=== PATIENT | female | born 1950 | race Caucasian/White ===

== ENCOUNTER 2017-02-26 13:08 | Inpatient (IN) ==
[2017-02-26] MEDS ORDERED: KETOROLAC 30 MG/1 ML VIAL IM STA (14:36)
[2017-02-26] MEDS ORDERED: ALUM/MAG/SIMETH/LIDO VISC 1:1 30 ML BOTTLE PO STA (14:39)
[2017-02-26] MEDS ORDERED: KETOROLAC 30 MG/1 ML VIAL ONE (14:46)
[2017-02-26] MEDS ORDERED: ALUM/MAG/SIMETH/LIDO VISC 1:1 30 ML BOTTLE PO ONE (14:47)
--- NOTE | 2017-02-26 14:48 | Emergency Department Note ---
Katiuska Kauffman Brittany, am scribing for, and in the presence of, Oswaldo Cochran MD 14: 37. Dimas Kauffman Robert, MD, personally performed the services described in this documentation, ascribed by Lacy Harp in my presence, and it is both accurate and complete 440 . Arrival - Arrival Chief Complaint: Abdominal / Flank Pain Stated Complaint: upper abd pain ED Nursing Triage Note: Pt c/o midline upper abd/epigastric pain with nausea and vomiting off and on since Friday. Mode of Arrival: Ambulatory Limitations: No Limitations Source: Patient, Family Time Seen by Provider: 02/26/17 14:20 - History of Present Illness HPI Narrative: This is a 66 y/o white female, who presents to the ED with c/o abd pain which started 3 days ago. Pt describes the pain as a burning type of pain. She reports nausea and vomiting which started 3 days ago as well. She reports she takes Prilosec q.d. She states the abdominal pain moves into her mid back. Her family reports pt has been generalized weak which started today as well. Pt reports she had a small BM this morning. She reports chills on and off. Pt denies any VICTORIA, dizziness, dysuira, vision changes, hematemesis, or melena. She states she has a known Hx of GERD, but denies any Hx of stomach ulcers. Pt has no other complaints/pain in the ED at this time. Pt has a PMHx of GERD. Pt has had a tonsilectomy, hysterectomy, and bladder sling. Pt denies a family medical Hx. Pt denies a social Hx. Onset (ago): day(s) (Started 3 days ago) Consistency: constant Severity: moderate Quality: burning Allergies/Adverse Reactions: Allergies Allergy/AdvReac Type Severity Reaction Status Date / Time No Known Allergies Allergy Verified 02/26/17 13:10 Home Medications: Home Medications Medication Instructions Recorded Confirmed Type Omeprazole 20 mg PO DAILY 02/26/17 02/26/17 History Review of System - Review of System 12 point system: reviewed and no additional remarkable complaints except as stated - Review of System Constitutional: Present: chills, weakness (Generalized weakness) Eyes: Absent: vision change Gastrointestinal: Present: abdominal pain, vomiting. Absent: hematemesis, melena Genitourinary female: Absent: dysuria Musculoskeletal: Present: back pain (Mid back pain ) Neurological: Absent: headache, vertigo Medical,Surgical,& Family Hx - Medical History Gastrointestinal: History of: GERD - Surgical History HEENT Surgeries: Surgical HX of: Tonsilectomy & Adenoidectomy Reproductive Surgeries: Surgical HX of;: Gynecologic Surgery (Bladder Sling), Hysterectomy - Social History Smoking Status: Never smoker Functional capacity: independent ambulation Exam Physical Examination: GENERAL: Well developed, well nourished. No acute distress. HEENT: PERRL, EOMI. No scleral icterus or conjunctival injection. Pharynx showed no erythema or exudate. mucous membranes moist. NECK: Supple. No lymph adenopathy. full ROM HEART: Regular rate and rhythm without murmurs, Rubs, or gallops. CHEST: No tenderness. Left greater than right CVA tenderness LUNGS: clear to auscultation. No rales, rhonchi, wheezes ABDOMEN: Soft. tender over RUQ, epigastric region and supraumbilical region. Bowel sounds normoactive. There were no masses or organomegaly. No rebound, no guarding SKIN: No rash. No diaphoresis. normal color NEURO: Alert. Motor exam showed no weakness. Sensory exam was intact to fine touch EXT: No edema noted. Full range of motion. normal capillary refill Vital Signs: Vital Signs Temperature 97.7 F 02/27/17 10:53 Pulse Rate 54 L 02/27/17 10:53 Respiratory Rate 18 02/27/17 10:53 Blood Pressure 140/67 02/27/17 10:53 O2 Sat by Pulse Oximetry 98 02/27/17 10:53 Course Course Narrative: Differential diagnosis cholecystitis, cholelithiasis, pancreatitis, kidney stone , gastric ulcer, AAA. Vitals normal - Consultations Consultation #1: Spoke with Dr. Hill general surgery, was notified and will be following hospital course 3:45 PM Time: 15:58 Consultation #2: Patient with pancreatitis and cholelithiasis hospitalist notified will come down to see patient 3:50 PM Time: 15:58 Results - Labs CBC & BMP: 02/27/17 06:15 02/27/17 06:15 Lab Results: I have reviewed the patients labs Labs: Laboratory Tests 02/26/17 02/26/17 02/26/17 14:51 14:51 14:51 WBC 9.0 RBC 4.74 Hgb 13.8 Hct 40.4 MCV 85.2 L MCH 29 MCHC 34.2 RDW 13.4 Plt Count 270 MPV 10.2 Neut % (Auto) 71.0 [place] % (Auto) 8.1 Eos % (Auto) 0.3 Baso % (Auto) 0.4 Neut # (Auto) 6.4 Lymph # (Auto) 1.8 [place] # (Auto) 0.7 Eos # (Auto) 0.0 Baso # (Auto) 0.0 Immature Gran % 0.4 Nucleated RBC % 0.0 Immature Gran # 0.04 Nucleated RBCs # 0.00 Sodium 141 Potassium 3.8 Chloride 106 Carbon Dioxide 24 Anion Gap 14.8 BUN 18 Creatinine 0.80 GFR Calculation 80 BUN/Creatinine Ratio 22.00 H Glucose 96 Calculated Osmolality 282.3 Calcium 9.1 Total Bilirubin 2.00 H AST 399 H ALT 280 H Alkaline Phosphatase 153 H Lactate Dehydrogenase 403 H Total Protein 6.8 Albumin 3.7 Globulin 3.1 Albumin/Globulin Ratio 1.1 Amylase 121 H Lipase 2258.0 H Urine Color Yellow Urine Appearance Clear Urine pH 7.0 Ur Specific [place] 1.018 Urine Protein Negative Urine Glucose (UA) Negative Urine Ketones Negative Urine Blood Negative Urine Nitrate Negative Urine Bilirubin Negative Urine Urobilinogen < 2.0 H Urine Leukocytes Negative Urine RBC 3 Urine WBC 2 Ur Squamous Epith Cells Occasional Urine Mucus Occasional Ur Culture Indicated? Not indicated - Diagnostic Findings Procedure: Abdominal x-ray: report reviewed by me (1. Cholelithiasis, and findings consistent with cholecystitis. 2. Mild fatty infiltration of the liver. ), Ultrasound: image reviewed by me, report reviewed by me, pending ( Impression: Cholelithiasis and cholecystitis, 2 mild fatty infiltration of liver ), X-ray: image reviewed by me, report reviewed by me (KUB: Nonspecific bowel gas pattern with moderate stool) Disposition Clinical Impression: Pancreatitis due to biliary obstruction, Cholelithiasis and acute cholecystitis with obstruction Case discussed with: patient, patient's family, patient's physician Disposition: Still a Patient Condition: Stable
[2017-02-26 15:04] LABS: Basophils % 0.4 % (0.0-0.8); Eosinophils % 0.3 % (0.00-10.9); Hematocrit 40.4 VOL% (35.7-47.0); Hemoglobin 13.8 GM/DL (12.0-16.0); Immature Granulocytes % 0.4 %; Immature Granulocytes Absolute 0.04 #; Lymphocytes # 1.8 10*3/uL (1.4-4.0); Lymphocytes % 19.8 % (21.3-54.2); Mean Corpuscular HGB Conc 34.2 GM/DL (32-36); Mean Corpuscular Hemoglobin 29 PG (27-34); Mean Corpuscular Volume 85.2 FL (87-102); Mean Platelet Volume 10.2 FL (9.6-12.0); Monocytes # 0.7 10*3/uL (0.11-0.8); Monocytes % 8.1 % (1.7-12.7); Neutrophils # 6.4 10*3/uL (1.4-7.4); Platelet Count 270 T/CUMM (130-400); Red Blood Count 4.74 MC/CUMM (3.8-5.5); Red Cell Distribution Width 13.4 % (9.3-17.3)
[2017-02-26 15:08] LABS: Apearance,Urine CLEAR (Clear); Bilirubin,Urine Negative (Negative); Blood, Urine Negative (Negative); Glucose,Urine (UA) Negative (Negative); Ketones,Urine Negative (Negative); Mucus,Urine Occasional /LPF (Occasional); Nitrite,Urine Negative (Negative); Protein,Urine Negative; RBC,Urine 3 /HPF (0-4); Squamous Epithelial Cell,Urine Occasional /HPF (0-10); Urine Specific Gravity 1.018 (1.001-1.035); Urine Urobilinogen < 2.0 EU/DL (0.2-1.0); WBC,Urine 2 /HPF (0-6)
[2017-02-26 15:09] LABS: Urine Color Yellow (Yellow)
[2017-02-26 15:22] LABS: Albumin 3.7 G/DL (3.4-5.0); Calcium 9.1 MG/DL (8.5-10.1); Osmolality,Calculated 282.3 MOS/KG (273-304); Potassium 3.8 MMOL/L (3.5-5.1); Total Protein 6.8 G/DL (6.4-8.3)
--- NOTE | 2017-02-26 15:37 | Ultrasound Report ---
Abdomen ultrasound. Indication: Right upper quadrant pain. The liver is normal in size. There is fatty infiltration of the liver. The gallbladder is filled with stones. There is a gallstone within the neck which does not move. The patient is tender over the gallbladder. There is also gallbladder wall thickening of 5 mm. The common duct is not dilated. It measures 4 mm. There is no intrahepatic biliary ductal dilatation. The pancreas is partially obscured by bowel gas. The spleen is normal in size. The kidneys are normal in size, location, and parenchymal echogenicity without focal lesion or pelvocaliectasis. The IVC is patent. Visualized portions of the abdominal aorta are of normal caliber. Impression: 1. Cholelithiasis, and findings consistent with cholecystitis. 2. Mild fatty infiltration of the liver. The Ultrasound images were captured and stored. PROCEDURE INTERPRETED AT [facility] DEPARTMENT OF RADIOLOGY Final Report Signed by: Dr. Kirstin Johnson
--- NOTE | 2017-02-26 15:47 | XRay Report ---
KUB. Indication: Generalized abdominal pain. The heart is normal in size. There is slight atelectasis or scarring at the left costophrenic angle. Surgical clips are noted in the left breast or chest wall. The osseous structures are diffusely demineralized. There is rotoscoliosis and degenerative change of the lower spinal column. Vascular calcifications are noted. Calcification is seen at the midline of the pelvis, probably below the level of the ureters. This could represent a vascular calcification, calcified lymph node, or a uterine fibroid. The bowel gas pattern is within the range of normal. There is very little bowel gas present. There is moderate fecal material in the right colon. No evidence of obstruction. Impression: Very little bowel gas. Moderate fecal material. PROCEDURE INTERPRETED AT [facility] DEPARTMENT OF RADIOLOGY Final Report Signed by: Dr. Kirstin Johnson
[2017-02-26] MEDS ORDERED: ONDANSETRON 4 MG/2 ML VIAL IV STA (16:02)
[2017-02-26] MEDS ORDERED: ONDANSETRON 4 MG/2 ML VIAL ONE (16:12)
--- NOTE | 2017-02-26 16:52 | Hospitalist History & Physical ---
<Alexsander Alas - Last Filed: 02/26/17 17:10> Assessment and Plan (1) Cholecystitis with cholelithiasis Status: Acute Assessment and plan: Admit to med surg. IVF and IV antibiotics. Consult GI and surgery. Clear liquid diet. Monitor patient. Pain control. Current Visit: Yes (2) Pancreatitis Status: Acute Assessment and plan: Clear liquid diet. IV fluids. IV antibiotics. Pain control. Monitor labs. Current Visit: Yes History of Present Illness Chief complaint: abdominal pain History of present illness: Ms. Griffin is a 66-year-old white female patient with history of GERD, hysterectomy, and bladder sling the presents to the ED complaining of abdominal pain. Patient states that the pain is been going on for "the last week or so" but has worsened in the last 3 days. Patient reports intermittent chills, nausea and vomiting but denies any change in her stool. Patient also denies any headache, vision changes, dizziness, hematemesis, or melena, patient states that she took Prilosec but received no relief. Patient also reported with abdominal pain is particularly worse on the right side that the pain radiated to her mid back. Patient denies shortness of breath or chest pain. Abdominal ultrasound revealed cholelithiasis and cholecystitis in addition to mild fatty infiltration of the liver. Patient will be admitted to the hospitalist service for further evaluation and treatment. Home Medications Medication Instructions Recorded Confirmed Type Omeprazole 20 mg PO DAILY 02/26/17 02/26/17 History Allergies Allergy/AdvReac Type Severity Reaction Status Date / Time No Known Allergies Allergy Verified 02/26/17 13:10 Medical,Surgical,& Family Hx - Medical History Gastrointestinal: History of: GERD - Surgical History HEENT Surgeries: Surgical HX of: Tonsilectomy & Adenoidectomy Reproductive Surgeries: Surgical HX of;: Gynecologic Surgery (Bladder Sling), Hysterectomy - Social History Smoking Status: Never smoker Frequency of Alcohol Use: None Type of Drug Use: None Marital Status: Lives With:: Alone Functional capacity: independent ambulation - Constitutional Constitutional: Present: weakness. Absent: chills, headache(s) - EENT Eyes: Absent: blurry vision, diplopia Nose, mouth and throat: Absent: dysphagia, headache(s) - Cardiovascular Cardiovascular: Absent: chest pain at rest, dyspnea, edema - Respiratory Respiratory: Absent: cough, dyspnea - Gastrointestinal Gastrointestinal: Present: abdominal pain, cramping, nausea, vomiting - Genitourinary Genitourinary: Present: urinary incontinence. Absent: difficulty urinating - Musculoskeletal Musculoskeletal: Present: back pain. Absent: limited range of motion - Neurological Neurological: Absent: confusion, dizziness - Psychiatric Psychiatric: Absent: anxiety, confusion - Endocrine Endocrine: Present: fatigue - Hematologic/Lymphatic Hematologic/Lymphatic: Absent: easy bleeding Exam - Constitutional Vitals: Period Temp Pulse Resp BP Sys/[place] Pulse Ox Last 24 Hr 96.8 F-96.8 F 69-79 20-20 151-177/65-80 97-100 General appearance: normal weight, no acute distress - Head Head exam: Present: normal inspection, normocephalic - Eye Eye exam: Present: EOMI. Absent: periorbital swelling Pupils: Present: NINO. Absent: fixed - Neck Neck exam: Present: normal inspection. Absent: thyromegaly - Respiratory Respiratory exam: Present: clear to auscultation bilaterally. Absent: wheezes - Cardiovascular Cardiovascular exam: Present: regular rate and rhythm - GI/Abdominal GI/Abdominal exam: Present: normal bowel sounds, tenderness (right upper quadrant and epigastric area), soft - Extremities Exam Extremities exam: Present: normal capillary refill, full ROM. Absent: edema - Neurological Exam Neurological exam: Present: alert, oriented X3, normal gait - Psychiatric Psychiatric exam: Present: normal affect, normal mood - Skin Skin exam: Present: normal color, warm, dry Results - Labs CBC & BMP: 02/26/17 14:51 02/26/17 14:51 Lab Results: I have reviewed the past 24 hour labs <Lexii Kee - Last Filed: 02/26/17 18:30> Assessment and Plan (1) Acute gallstone pancreatitis Status: Acute Assessment and plan: Consult Dr. Chakraborty in a.m. for possible ERCP, ice chips with water, lipase in am Current Visit: Yes (2) Cholecystitis with cholelithiasis Status: Acute Assessment and plan: Consult Dr. Hill, brandon Invanz for IV antibiotics. Will need a lap trisha after ERCP Current Visit: Yes (3) Elevated liver enzymes Status: Acute Assessment and plan: CMP in a.m. elevated secondary to cholecystitis and pancreatitis Current Visit: Yes History of Present Illness History of present illness: Ms. Griffin is a 66 year old female Medical,Surgical,& Family Hx - Family History Family History: Reports;: Family Cancer Denies;: Family Diabetes, Family Heart Disease, Family Stroke - Hematologic/Lymphatic Hematologic/Lymphatic: Absent: easy bruising Exam - Constitutional Vitals: Period Temp Pulse Resp BP Sys/[place] Pulse Ox Last 24 Hr 96.8 F-97.4 F 69-79 20-20 144-177/65-80 97-100 - Eye Eye exam: Absent: scleral icterus Pupils: Present: normal accommodation - ENT ENT exam: Present: normal exam, normal external ear exam - Neck Neck exam: Absent: lymphadenopathy - Cardiovascular Cardiovascular exam: Absent: systolic murmur - Neurological Exam Neurological exam: Present: reflexes normal. Absent: motor sensory deficit Results - Labs CBC & BMP: 02/26/17 14:51 02/26/17 14:51 - Diagnostic Findings Procedure: Abdominal x-ray: report reviewed by me (Constipation), Ultrasound: report reviewed by me (Stones in the gallbladder with fatty liver findings consistent with cholecystitis)
[2017-02-26] MEDS ORDERED: MORPHINE 2 MG/1 ML SYRINGE IV PRN ×2 (17:33→18:32)
[2017-02-26] MEDS ORDERED: ONDANSETRON 4 MG/2 ML VIAL IV PRN (17:33)
--- NOTE | 2017-02-26 17:44 | General Surgery Consult Note ---
Assessment and Plan (1) Acute gallstone pancreatitis Status: Acute Assessment and plan: Patient with apparent gallstone pancreatitis; CT scan has been ordered and is pending. Recommend continue with current treatment including bowel rest, IV hydration, and antiemetics and analgesics as needed. Patient will ultimately require cholecystectomy to prevent recurrence. She will also require a GI consultation for possible ERCP with stone extraction. The expected clinical course of events were reviewed with the patient. All questions were welcomed and answered. We will continue to follow along and plan cholecystectomy when medically appropriate. Current Visit: Yes History of Present Illness Chief complaint: Abdominal pain History of present illness: Ms. Griffin is a 66 year old female with past medical history of GERD who presents to the emergency department with complaints of abdominal pain. She reports moderate to severe epigastric pain is been present for approximately 2 days; this was progressively worsening over the course for approximately a week which progressed to associated nausea vomiting without diarrhea; no hematochezia or melena. She has no history of pancreatitis or gallbladder disease. She had no fever, chills, rash or arthralgias. Allergies Allergy/AdvReac Type Severity Reaction Status Date / Time No Known Allergies Allergy Verified 02/26/17 13:10 Medical,Surgical,& Family Hx - Medical History Gastrointestinal: History of: GERD - Surgical History HEENT Surgeries: Surgical HX of: Tonsilectomy & Adenoidectomy Abdominal Surgeries: Surgical HX of: Abdominal Surgery (Tummy tuck) Reproductive Surgeries: Surgical HX of;: Breast Surgery (breast reduction surgery), Gynecologic Surgery (Bladder Sling), Hysterectomy - Family History Family History: Reports;: Family Cancer (mesothelioma) - Social History Smoking Status: Never smoker Frequency of Alcohol Use: None Type of Drug Use: None Functional capacity: uses cane/walker - Constitutional Constitutional: Present: as per HPI - Cardiovascular Cardiovascular: Absent: chest pain at rest, chest pain with activity, dyspnea on exertion, orthopnea, palpitations - Respiratory Respiratory: Absent: cough, wheezing - Gastrointestinal Gastrointestinal: Present: as per HPI - Genitourinary Genitourinary: Absent: dysuria, flank pain, hematuria - Musculoskeletal Musculoskeletal: Present: as per HPI Hematologic/Lymphatic: Absent: easy bleeding, easy bruising Exam - Constitutional Vitals: Period Temp Pulse Resp BP Sys/[place] Pulse Ox Last 24 Hr 96.8 F-97.4 F 69-79 20-20 144-177/65-80 97-100 General appearance: normal weight, no acute distress - Head Head exam: Present: normal inspection, normocephalic - Eye Eye exam: Absent: conjunctival injection, scleral icterus - Neck Neck exam: Present: trachea midline - Respiratory Respiratory exam: Present: clear to auscultation bilaterally - Cardiovascular Cardiovascular exam: Present: RRR - GI/Abdominal GI/Abdominal exam: Present: normal bowel sounds, tenderness (Epigastric), soft. Absent: distended, firm - Extremities Exam Extremities exam: Absent: calf tenderness, edema - Neurological Exam Neurological exam: Present: alert, oriented X3 Speech: Present: normal - Skin Skin exam: Present: normal color, warm Results - Labs CBC & BMP: 02/26/17 14:51 02/26/17 14:51 Lab Results: I have reviewed the past 24 hour labs Labs: Bilirubin 2.0 AST 399 ALT 280 Alk phos 153 LDH 403 Amylase 121 Lipase 2258 - Diagnostic Findings Procedure: KUB x-ray: image reviewed by me, report reviewed by me, Ultrasound: image reviewed by me, report reviewed by me
[2017-02-26] MEDS: SODIUM CHLORIDE 0.9% 1,000 ML IV SCH (18:00)
[2017-02-26] MEDS: ERTAPENEM 1,000 MG in SODIUM CHLORIDE 0.9% 100 ML IV SCH (18:30)
--- NOTE | 2017-02-26 19:26 | CT Report ---
CT of the abdomen and pelvis with oral and intravenous contrast. Indication: Gallstone pancreatitis. Axial images were obtained with sagittal and coronal reconstructions. No previous study. 100 cc Omni 350. The heart is normal in size. There are areas of atelectasis present within each lung base. There is no pericardial or pleural effusion. There is fatty infiltration of the liver. The liver size is normal. No focal liver lesions are identified. There is no intrahepatic biliary ductal dilatation. The gallbladder wall enhances, and there is stranding in the fat surrounding the gallbladder. The gallstone seen on ultrasound are not visible on the CT. The common hepatic duct is of normal caliber, but does demonstrate wall enhancement. The common bile duct is not dilated. The pancreas enhances normally. The pancreatic duct is not dilated. The pancreatic size is normal. No fluid around the pancreas, or inflammation around the pancreas. The spleen is normal in size. There is a small hiatal hernia. There is no adrenal enlargement. The kidneys are normal in size, location, and contour. There is moderate mixed plaque in a normal caliber abdominal aorta. No adenopathy is seen. The gastric contour is normal. The loops of small and large intestine are not dilated. The terminal ileum presents a normal appearance. The appendix is not discretely seen. Scattered diverticula are present within the colon without findings to suggest diverticulitis. Coarse calcifications in the pelvis, likely postoperative status post hysterectomy. The urinary bladder presents a normal appearance. There is no inguinal or iliac chain lymphadenopathy. There is no free air or free fluid present within the peritoneal cavity. Impression: 1. Basilar atelectasis. 2. Cholecystitis. 3. The pancreas appears normal by CT. 4. Fatty liver. 5. Diverticulosis. The CT exam was performed using one or more of the following dose reduction techniques: Automated exposure control, adjustment of the mA and/or kV according to patient size, or use of iterative reconstruction technique. PROCEDURE INTERPRETED AT [facility] DEPARTMENT OF RADIOLOGY Final Report Signed by: Dr. Kirstin Johnson
[2017-02-27] MEDS: SODIUM CHLORIDE 0.9% 1,000 ML IV SCH ×5 (02:32→23:29)
[2017-02-27] MEDS: ACETAMINOPHEN 325 MG TABLET PO PRN (05:58)
[2017-02-27 07:12] LABS: Basophils # 0.1 10*3/uL (0.0-0.2); Basophils % 0.7 % (0.0-0.8); Eosinophils # 0.2 10*3/uL (0.0-0.87); Eosinophils % 3.4 % (0.00-10.9); Hematocrit 36.3 VOL% (35.7-47.0); Hemoglobin 12.1 GM/DL (12.0-16.0); Immature Granulocytes % 0.4 %; Immature Granulocytes Absolute 0.03 #; Lymphocytes # 2.4 10*3/uL (1.4-4.0); Lymphocytes % 33.1 % (21.3-54.2); Mean Corpuscular HGB Conc 33.3 GM/DL (32-36); Mean Corpuscular Hemoglobin 29 PG (27-34); Mean Corpuscular Volume 86.2 FL (87-102); Mean Platelet Volume 11.1 FL (9.6-12.0); Monocytes # 0.6 10*3/uL (0.11-0.8); Monocytes % 8.1 % (1.7-12.7); Neutrophils # 3.9 10*3/uL (1.4-7.4); Neutrophils % 54.3 % (38.7-73.9); Platelet Count 240 T/CUMM (130-400); Red Blood Count 4.21 MC/CUMM (3.8-5.5); Red Cell Distribution Width 13.6 % (9.3-17.3); White Blood Count 7.2 T/CUMM (4-12)
[2017-02-27 07:48] LABS: Calcium 8.2 MG/DL (8.5-10.1); Magnesium 2.2 MG/DL (1.8-2.4); Osmolality,Calculated 284.8 MOS/KG (273-304); Potassium 3.9 MMOL/L (3.5-5.1); Risk Ratio 3.19; Thyroid Stimulating Hormone 0.457 uIU/ml (0.358-3.74); VLDL CHOLESTEROL 19.2 MG/DL
[2017-02-27 07:51] LABS: Albumin 3.1 G/DL (3.4-5.0); Bilirubin,Direct 0.9 MG/DL (0.0-0.20); Bilirubin,Indirect 0.7 MG/DL (0.0-1.0); Bilirubin,Total 1.6 MG/DL (0.2-1.0); Total Protein 5.5 G/DL (6.4-8.3)
--- NOTE | 2017-02-27 08:04 | General Surgery Progress Note ---
Assessment and Plan (1) Acute gallstone pancreatitis Status: Acute Assessment and plan: Impression: Gallstone pancreatitis, pain is resolved Plan: Lipase now normal and bilirubin improved. Case discussed with Dr. Chakraborty. Her duct was not dilated on ultrasound. Think it is reasonable to proceed with cholecystectomy with cholangiogram. If the stone is found at the time of surgery and we would probably proceed with postoperative ERCP. This was discussed with the patient. We discussed the procedure habits performed and the anticipated recovery. Risk of the procedure including bleeding, infection, damage to surrounding structures including the biliary tree, need for further surgery were all discussed in detail she would like to proceed. Plan for cholecystectomy tomorrow. Current Visit: Yes Subjective Patient reports: Present: feels better Narrative: Patient feels much better today. Her pain is resolved. She slept well last night. She has been afebrile and her vital signs are stable. Exam - Constitutional Vitals: Period Temp Pulse Resp BP Sys/[place] Pulse Ox Last 24 Hr 96.8 F-98.4 F 64-79 17-20 144-177/63-90 94-100 General appearance: no acute distress - Head Head exam: Present: normocephalic - Neck Neck exam: Present: normal inspection - Respiratory Respiratory exam: Present: clear to auscultation bilaterally - Cardiovascular Cardiovascular exam: Present: RRR - GI/Abdominal GI/Abdominal exam: Present: soft (She soft nontender nondistended and states that she has very minimal "discomfort" with deep palpation in the epigastric region. No right upper quadrant tenderness.) - Extremities Exam Extremities exam: Present: normal inspection - Neurological Exam Neurological exam: Present: alert, oriented X3 Speech: Present: normal - Skin Skin exam: Present: normal color Results - Labs CBC & BMP: 02/27/17 06:15 02/26/17 14:51 Lab Results: I have reviewed the past 24 hour labs
[2017-02-27] MEDS ORDERED: PANTOPRAZOLE 40 MG TABLET PO SCH (09:00)
[2017-02-27] MEDS: PANTOPRAZOLE 40 MG VIAL IV SCH (09:57)
--- NOTE | 2017-02-27 11:56 | Gastrointestinal Consult Note ---
<Chasidy Stinson - Last Filed: 02/27/17 11:51> Assessment and Plan (1) Cholecystitis with cholelithiasis Status: Acute Assessment and plan: 02/27-Sudden onset of abdominal pain with nausea and vomiting. Findings on admission of elevated LFTs and lipase with cholelithiasis and cholecystitis. Plans noted at this time for laparoscopic cholecystectomy and intraoperative cholangiogram tomorrow and postoperative ERCP to follow if necessary. Plan an addendum to followed by Dr. Chakraborty. Current Visit: Yes History of Present Illness Chief complaint: Abdominal pain History of present illness: Ms. Grififn is a 66 year old female who was admitted to the hospital with sudden onset of abdominal pain 3 days ago. Patient states she was in her usual state of health until Friday night when she had a sudden onset of upper quadrant abdominal pain that radiated through to her back. She states she also had onset of nausea and vomiting along with ES as well as some chills but denies any fever. She states the pain persisted off and on until she came to the emergency room on yesterday for further evaluation. She states she has never had pain like this before. Upon admission she was found to have on abdominal ultrasound cholelithiasis with acute cholecystitis as well as a mild fatty liver. CT of abdomen showed cholecystitis with no pancreatic changes and no intra-or extrahepatic ductal dilatation. Liver enzymes were noted on admission to be elevated as well as bilirubin. Today her bilirubin is down slightly from 2.0-1.6 however AST and ALT are slightly more elevated. Lipase on admission was 2258 and is trended down to [address] Moreno has been consulted and at this time plans to proceed with laparoscopic cholecystectomy with intraoperative cholangiogram on tomorrow. Notation made if stone is found at that time then possible postoperative ERCP may be necessary. Home Medications Medication Instructions Recorded Confirmed Type Omeprazole 20 mg PO DAILY 02/26/17 02/26/17 History Allergies Allergy/AdvReac Type Severity Reaction Status Date / Time No Known Allergies Allergy Verified 02/26/17 13:10 Medical,Surgical,& Family Hx - Medical History Psychological: No history of: Anxiety Disorders, ADHD, Behavior Problems, Bipolar Disorder, Depression, Previous Suicide Attempt, Psychiatric/Substance Abuse Tx, Schizophrenia, Violent Behavior, Psychiatric Problems Gastrointestinal: History of: GERD - Surgical History HEENT Surgeries: Surgical HX of: Tonsilectomy & Adenoidectomy Abdominal Surgeries: Surgical HX of: Abdominal Surgery (Tummy tuck) Reproductive Surgeries: Surgical HX of;: Breast Surgery (breast reduction surgery), Gynecologic Surgery (Bladder Sling), Hysterectomy - Family History Family History: Reports;: Family Cancer Denies;: Family Diabetes, Family Heart Disease, Family Stroke - Social History Smoking Status: Never smoker Frequency of Alcohol Use: None Type of Drug Use: None 12 point system: reviewed and no additional remarkable complaints except as stated - Constitutional Constitutional: Present: as per HPI - EENT Eyes: Present: as per HPI Ears: Present: as per HPI Nose, mouth and throat: Present: as per HPI - Cardiovascular Cardiovascular: Present: as per HPI - Respiratory Respiratory: Present: as per HPI - Gastrointestinal Gastrointestinal: Present: as per HPI, abdominal pain, nausea, vomiting - Genitourinary Genitourinary: Present: as per HPI - Musculoskeletal Musculoskeletal: Present: as per HPI - Neurological Neurological: Present: as per HPI - Psychiatric Psychiatric: Present: as per HPI - Endocrine Endocrine: Present: as per HPI - Hematologic/Lymphatic Hematologic/Lymphatic: Present: as per HPI Exam - Constitutional Vitals: Period Temp Pulse Resp BP Sys/Carrasco Pulse Ox Last 24 Hr 96.8 F-98.4 F 54-79 17-20 133-177/63-90 94-100 General appearance: normal weight, no acute distress - Head Head exam: Present: normal inspection, normocephalic - Eye Eye exam: Present: other (Lids and conjunctive are unremarkable). Absent: scleral icterus - ENT ENT exam: Present: normal exam, normal oropharynx - Neck Neck exam: Present: normal inspection - Respiratory Respiratory exam: Present: clear to auscultation bilaterally. Absent: rales, rhonchi, wheezes - Cardiovascular Cardiovascular exam: Present: regular rate and rhythm. Absent: diastolic murmur , JVD, systolic murmur - GI/Abdominal GI/Abdominal exam: Present: normal bowel sounds, tenderness, soft. Absent: ascites, distended, mass, organomegaly - Extremities Exam Extremities exam: Present: normal inspection, full ROM - Back Exam Back exam: Present: normal inspection - Neurological Exam Neurological exam: Present: alert, oriented X3 - Psychiatric Psychiatric exam: Present: normal affect, normal mood - Skin Skin exam: Present: normal color, warm, dry Results - Labs CBC & BMP: 02/27/17 06:15 02/27/17 06:15 Lab Results: I have reviewed the past 24 hour labs - Diagnostic Findings Procedure: CT Abdomen and Pelvis: report reviewed by me, Ultrasound: report reviewed by me <Chip Chakraborty - Last Filed: 02/27/17 19:06> History of Present Illness History of present illness: Ms. Griffin is a 66 year old female Exam - Constitutional Vitals: Period Temp Pulse Resp BP Sys/Carrasco Pulse Ox Last 24 Hr 97.6 F-98.4 F 54-75 17-18 133-155/63-90 94-98 Results - Labs CBC & BMP: 02/27/17 06:15 02/27/17 06:15
--- NOTE | 2017-02-27 15:10 | Hospitalist Progress Note ---
Assessment and Plan (1) Acute gallstone pancreatitis Status: Acute Assessment and plan: Nothing seen by CT. Lipase is improved to quickly. Patient most likely already passed the stone. ERCP may not be needed. Defer to Dr. Chakraborty Current Visit: Yes (2) Cholecystitis with cholelithiasis Status: Acute Assessment and plan: Lap trisha in the morning with intraoperative cholangiogram. Continue Invanz Current Visit: Yes (3) Elevated liver enzymes Status: Acute Assessment and plan: Liver enzymes mildly increased from yesterday. But total bili decreasing. Should resolve after lap trisha Current Visit: Yes Hospitalist: Subjective Interval history: Patient feels much better today and her lipase decreased from 2258-350 Exam - Constitutional Vitals: Period Temp Pulse Resp BP Sys/C[place] Pulse Ox Last 24 Hr 97.4 F-98.4 F 54-75 17-20 133-155/63-90 94-100 Exam: Heart Rate-[RRR] Lungs-[CTAB] GI-[+bs soft, NT] Ext-[no edema] Neuro [Motor 5/5], [alert and oriented times 3] psych [normal mood and affect] General [no acute distress] Results - Labs CBC & BMP: 02/27/17 06:15 02/27/17 06:15 Lab Results: I have reviewed the past 24 hour labs - Diagnostic Findings Procedure: CT Abdomen and Pelvis: report reviewed by me (Basilar atelectasis, cholecystitis, pancreas appears normal by CT, fatty liver. Diverticulosis)
[2017-02-27] MEDS: ERTAPENEM 1,000 MG in SODIUM CHLORIDE 0.9% 100 ML IV SCH (18:21)
[2017-02-28 06:13] LABS: Partial Thromboplastin Time 26.5 SECS (0-40)
[2017-02-28 06:38] LABS: Calcium 8.1 MG/DL (8.5-10.1); Osmolality,Calculated 280.1 MOS/KG (273-304); Potassium 3.8 MMOL/L (3.5-5.1); Total Protein 5.7 G/DL (6.4-8.3)
[2017-02-28] MEDS: PANTOPRAZOLE 40 MG VIAL IV SCH (08:47)
[2017-02-28] MEDS: SODIUM CHLORIDE 0.9% 1,000 ML IV SCH ×3 (08:50→16:51)
--- NOTE | 2017-02-28 08:57 | Gastrointestinal Progress Note ---
<MiladChasidy Marc - Last Filed: 02/28/17 08:54> Assessment and Plan (1) Cholecystitis with cholelithiasis Status: Acute Assessment and plan: 02/28-No abd pain. LFTs trending downward. For lap trisha today. We will await cholangiogram report. Plan and addendum to follow by Dr Chakraborty. 02/27-Sudden onset of abdominal pain with nausea and vomiting. Findings on admission of elevated LFTs and lipase with cholelithiasis and cholecystitis. Plans noted at this time for laparoscopic cholecystectomy and intraoperative cholangiogram tomorrow and postoperative ERCP to follow if necessary. Plan an addendum to followed by Dr. Chakraborty. Current Visit: Yes Gastroenterology - PN: Subj Interval history: CC: Abdominal pain Pt is awake and alert. States she had an uneventful night. She denies any further pain, nausea or vomiting. Abdomen is soft, nontender. She is awaiting surgery today for laparoscopic cholecystectomy. Her LFTs are continuing to trend downward at this time. ROS: Denies SOB or chest pain Exam (Progress Note) - Constitutional Vitals: Period Temp Pulse Resp BP Sys/Carrasco Pulse Ox Last 24 Hr 97.6 F-98.0 F 54-68 18-18 134-146/61-68 95-98 General appearance: normal weight, no acute distress - Head Head exam: Present: normal inspection, normocephalic - Eye Eye exam: Present: other (lids and conjunctiva unremarkable). Absent: scleral icterus - ENT ENT exam: Present: normal exam, normal oropharynx - Neck Neck exam: Present: normal inspection - Respiratory Respiratory exam: Present: clear to auscultation bilaterally. Absent: rales, rhonchi, wheezes - Cardiovascular Cardiovascular exam: Present: regular rate and rhythm. Absent: diastolic murmur , JVD, systolic murmur - GI/Abdominal GI/Abdominal exam: Present: normal bowel sounds, soft. Absent: ascites, distended, mass, organomegaly, tenderness - Extremities Exam Extremities exam: Present: normal inspection, full ROM - Back Exam Back exam: Present: normal inspection - Neurological Exam Neurological exam: Present: alert, oriented X3 - Psychiatric Psychiatric exam: Present: normal affect, normal mood - Skin Skin exam: Present: normal color, warm, dry Results - Labs CBC & BMP: 02/27/17 06:15 02/28/17 04:17 Lab Results: I have reviewed the past 24 hour labs Specialty Discharge - Follow Up or Referrals Follow up with: Bunny Hill MD [Physician] - 03/19/17 9:15 am <Chip Chakraborty - Last Filed: 02/28/17 14:45> Exam (Progress Note) - Constitutional Vitals: Period Temp Pulse Resp BP Sys/Carrasco Pulse Ox Last 24 Hr 97.6 F-99.2 F 57-82 16-20 134-168/50-71 94-100 Results - Labs CBC & BMP: 02/27/17 06:15 02/28/17 04:17
[2017-02-28] MEDS ORDERED: LIDOCAINE 2%/EPI 20 ML VIAL ONE (09:26)
[2017-02-28] MEDS ORDERED: BUPIVACAINE MPF 0.25% /EPI 30 ML VIAL ONE (09:26)
[2017-02-28] MEDS ORDERED: GLYCOPYRROLATE 0.4 MG/2 ML VIAL ONE (09:52)
[2017-02-28] MEDS ORDERED: PHENYLEPHRINE 1 MG/10 ML SYRINGE IV ONE (09:52)
[2017-02-28] MEDS ORDERED: KETOROLAC 30 MG/1 ML VIAL ONE (09:52)
[2017-02-28] MEDS ORDERED: LIDOCAINE 1% 5 ML VIAL ONE (09:52)
[2017-02-28] MEDS ORDERED: NEOSTIGMINE 10 MG/10 ML VIAL ONE (09:52)
[2017-02-28] MEDS ORDERED: ROCURONIUM 100 MG/10 ML VIAL IV ONE (09:52)
[2017-02-28] MEDS ORDERED: PROPOFOL 200 MG/20 ML VIAL IV ONE (09:52)
[2017-02-28] MEDS ORDERED: ONDANSETRON 4 MG/2 ML VIAL ONE ×2 (09:52→11:11)
[2017-02-28] MEDS ORDERED: TISSUE ADHESIVE 1 EACH APPLICATOR TOP ONE (10:43)
[2017-02-28] MEDS ORDERED: SEVOFLURANE 1 UNIT/15 MINUTE INH ONE (11:07)
[2017-02-28] MEDS ORDERED: MIDAZOLAM 2 MG/2 ML VIAL ONE (11:08)
[2017-02-28] MEDS ORDERED: fentaNYL 100 MCG/2 ML VIAL ONE (11:08)
[2017-02-28] MEDS ORDERED: LACTATED RINGERS 1,000 ML IV ONE (11:08)
[2017-02-28] MEDS ORDERED: ePHEDrine 50 MG/ML AMP ONE (11:08)
[2017-02-28] MEDS ORDERED: ONDANSETRON 4 MG/2 ML VIAL IV PRN (11:10)
[2017-02-28] MEDS ORDERED: HYDROmorphone 2 MG/1 ML VIAL IV PRN (11:13)
--- NOTE | 2017-02-28 11:14 | Fluoroscopy Report ---
FL cholangiogram in surgery Indication: Pain Comparison: None Technique: 73 intraoperative fluoroscopic views of the biliary tree. Fluoroscopy time 17 seconds. Findings: Images submitted during intraoperative cholangiogram. There is free flow of contrast material into the duodenum without significant filling defect or ductal dilatation. Please see operative report for details. IMPRESSION: As above. PROCEDURE INTERPRETED AT [facility] DEPARTMENT OF RADIOLOGY Final Report Signed by: Dr Naveen Patel
--- NOTE | 2017-02-28 12:06 | Operative Note ---
Date of procedure: 02/28/17 Pre-op diagnosis: Gallstone pancreatitis, acute cholecystitis Post-op diagnosis: same Procedure: Procedure performed: Laparoscopic cholecystectomy with intraoperative cholangiogram Procedure in detail: After informed consent was obtained, patient was taken operating suite placed upon the operating table. General anesthesia induced the abdomen was prepped and draped in usual sterile fashion. After procedural pause local anesthetic infiltrate in the skin and subcutaneous tissue just below the umbilicus. Incision made and dissection carried down through skin and soft tissue. Fascia grasped with Lagrange's and elevated fascial incision was made. Abdominal cavity was entered bluntly. Finger sweep revealed no adhesions. Beauchamp trocar placed under visualization. Pneumoperitoneum achieved. Camera inserted bowel mesentery were inspected and found to be free of any violation. Next patient was placed in reverse Trendelenburg position rotated to the left. 2 5 mm trochars were placed in the right upper quadrant an 11 mm subxiphoid trocar was placed all under visualization. Gallbladder was identified. It was moderately edematous and inflamed. It was grasped and retracted superiorly. There were some adhesions that were bluntly swept off the gallbladder wall. Infundibulum of the gallbladder retracted toward the right hip. Dissection carried out from lateral to medial approach and the triangle of Ausetn. Cystic duct and cystic artery were identified and isolated. Using a critical view technique these are the only 2 structures entering the gallbladder. Clip was placed in the junction of the cystic duct and neck of the gallbladder. Partial transection made on cystic duct and cholangiocatheter inserted and secured in place. Intraoperative glandular and performed. Cystic duct common bile duct intra-and extrahepatic ducts all filled no filling defects identified. Contrast seen entering small bowel. Cholangiocatheter removed and 2 clips placed on the cystic duct just distal to the partial transection. Transection was completed. Cystic artery was triple clipped and transected how long the gallbladder wall. Gallbladder was then removed from gallbladder fossa using hook cautery and placed in Endo Catch sac he was removed to the Beauchamp trocar site. Pneumoperitoneum reachieved. The right upper quadrant was thoroughly irrigated and suctioned. There is good hemostasis. The irrigant remained clear was all suctioned. Clips inspected found to be intact no leakage of bilious or sanguinous fluid. Trochars removed under visualization of the abdomen desufflated. Fascia at the Beauchamp trocar site closed using 0 Vicryl [id number] interrupted suture. Wounds were irrigated and suctioned the deep dermal layer was closed with 3-0 Vicryl. 4-0 Monocryl was used to close skin. Sterile dressings applied. The patient was explained taken recovery room in stable condition. All lap and needle counts were correct at the end of the case. Anesthesia: CASA Surgeon / Physician: Bunny Hill Estimated blood loss: other (Less than 10 cc) Specimens: other (Gallbladder) Condition: stable Disposition: PACU Results - Labs CBC & BMP: 02/27/17 06:15 02/28/17 04:17 Discharge Plan - Discharge Medications No Action Omeprazole 20 mg PO DAILY - Follow Up or Referral Follow Up: Bunny Hill MD [Physician] - 03/19/17 9:15 am - Forms/Instructions Instructions: Gallstones (DC), Laparoscopic Cholecystectomy (DC)
[2017-02-28 12:18] LABS: Bilirubin,Total 0.8 MG/DL (0.2-1.0)
--- NOTE | 2017-02-28 14:29 | Anesthesia Post-Op ---
Anesthesia Post OP - Post Ansesthetic Evaluation Patient seen in post op: Yes Resp: within normal limits CV: within normal limits Mental: within normal limits Temp: within normal limits [id number]: within normal limits Nausea and Vomiting: within normal limits Pain: within normal limits
--- NOTE | 2017-02-28 15:13 | Hospitalist Progress Note ---
Assessment and Plan (1) Cholecystitis with cholelithiasis Status: Acute Assessment and plan: Lap trisha today, stop Invanz Current Visit: Yes (2) Acute gallstone pancreatitis Status: Acute Assessment and plan: Resolved Current Visit: Yes (3) Elevated liver enzymes Status: Acute Assessment and plan: Liver enzymes improving Current Visit: Yes Hospitalist: Subjective Interval history: Saw patient prior to surgery. She was anxious to get the surgery over with go home. She denies any pain whatsoever. Exam - Constitutional Vitals: Period Temp Pulse Resp BP Sys/Carrasco Pulse Ox Last 24 Hr 97.6 F-99.2 F 57-82 16-20 134-168/50-71 94-100 Exam: Heart Rate-[RRR] Lungs-[CTAB] GI-[+bs soft, NT] Ext-[no edema] Neuro [Motor 5/5], [alert and oriented times 3] psych [normal mood and affect] General [no acute distress] Results - Labs CBC & BMP: 02/27/17 06:15 02/28/17 04:17 Lab Results: I have reviewed the past 24 hour labs Specialty Discharge - Follow Up or Referrals Follow up with: Bunny Hill MD [Physician] - 03/19/17 9:15 am
[2017-03-01] MEDS: ACETAMINOPHEN 325 MG TABLET PO PRN (01:16)
[2017-03-01 03:49] LABS: Basophils # 0.1 10*3/uL (0.0-0.2); Basophils % 0.6 % (0.0-0.8); Eosinophils # 0.3 10*3/uL (0.0-0.87); Eosinophils % 2.9 % (0.00-10.9); Hematocrit 38.6 VOL% (35.7-47.0); Hemoglobin 13.1 GM/DL (12.0-16.0); Immature Granulocytes % 0.7 %; Immature Granulocytes Absolute 0.06 #; Lymphocytes # 1.3 10*3/uL (1.4-4.0); Lymphocytes % 14.9 % (21.3-54.2); Mean Corpuscular HGB Conc 33.9 GM/DL (32-36); Mean Corpuscular Hemoglobin 29 PG (27-34); Mean Corpuscular Volume 85.8 FL (87-102); Mean Platelet Volume 10.4 FL (9.6-12.0); Monocytes # 0.8 10*3/uL (0.11-0.8); Monocytes % 8.3 % (1.7-12.7); Neutrophils # 6.5 10*3/uL (1.4-7.4); Neutrophils % 72.6 % (38.7-73.9); Platelet Count 221 T/CUMM (130-400); Red Cell Distribution Width 13.6 % (9.3-17.3)
[2017-03-01 04:23] LABS: Albumin 3.4 G/DL (3.4-5.0); Bilirubin,Total 0.8 MG/DL (0.2-1.0); Calcium 8.7 MG/DL (8.5-10.1); Osmolality,Calculated 276.4 MOS/KG (273-304); Potassium 3.4 MMOL/L (3.5-5.1); Total Protein 6.1 G/DL (6.4-8.3)
[2017-03-01 07:45] VITALS: BP 144/70
[2017-03-01] MEDS: PANTOPRAZOLE 40 MG VIAL IV SCH (08:13)
[2017-03-01] MEDS: SODIUM CHLORIDE 0.9% 1,000 ML IV SCH ×2 (08:15→10:38)
--- NOTE | 2017-03-01 10:10 | Discharge Summary ---
<AlasMundojavi - Last Filed: 03/01/17 09:54> Hospital Course - Hospital Course Hospital Course: Ms. Griffin is a 66-year-old white female patient with history of GERD admitted for abdominal pain secondary to pancreatitis. Abdominal ultrasound revealed cholelithiasis and cholecystitis with mild fatty infiltration of the liver. Lipase of 2258 was probably due to transient stone in the pancreatic duct. AST 399, and ALT 280 due to cholecystitis which has improved to AST 135 ALT 273 after lap trisha. Patient underwent a laparoscopic cholecystectomy with intraoperative cholangiogram which showed no residual stones. Pt. tolerated well and will be discharged home today with f/u with Dr. Andres and with Dr. Hill. Diagnosis - Discharge Diagnosis (1) Cholecystitis with cholelithiasis Status: Acute (2) Pancreatitis Status: Acute Specialty Discharge - Follow Up or Referrals Follow up with: Bunny Hill MD [Physician] - 03/19/17 9:15 am Discharge Plan - Discharge Data Disposition: Disch To Home/Self Care - Discharge Medications New HYDROcodone/ACETAMIN 5-325 [Gary 5-325] 1 tablet PO Q4H PRN #30 tablet PRN Reason: Pain Mild (1-3) Continue Omeprazole 20 mg PO DAILY - Follow Up or Referral Follow Up: Bunny Hill MD [Physician] - 03/19/17 9:[address] nancy [Other] - 2 Weeks - Forms/Instructions Instructions: Gallstones (DC), Laparoscopic Cholecystectomy (DC) Exam - Constitutional Vitals: Period Temp Pulse Resp BP Sys/Carrasco Pulse Ox Last 24 Hr 98.0 F-101.9 F 64-89 16-18 139-161/59-72 94-100 Discharge Results Procedures and tests throughout hospitalization: Pending Orders 02/28/17 FL in surgery Routine Labs on day of discharge: Labs from last 24 hours 03/01/17 03/01/17 02/28/17 03:27 03:27 04:17 WBC 9.0 RBC 4.50 Hgb 13.1 Hct 38.6 MCV 85.8 L MCH 29 MCHC 33.9 RDW 13.6 Plt Count 221 MPV 10.4 Neut % (Auto) 72.6 Lymph % (Auto) 14.9 L [place] % (Auto) 8.3 Eos % (Auto) 2.9 Baso % (Auto) 0.6 Neut # (Auto) 6.5 Lymph # (Auto) 1.3 L [place] # (Auto) 0.8 Eos # (Auto) 0.3 Baso # (Auto) 0.1 Immature Gran % 0.7 Nucleated RBC % 0.0 Immature Gran # 0.06 Nucleated RBCs # 0.00 Sodium 140 Potassium 3.4 L Chloride 104 Carbon Dioxide 23 Anion Gap 16.4 H BUN 8 Creatinine 0.90 GFR Calculation 69 BUN/Creatinine Ratio 8.00 Glucose 97 Calculated Osmolality 276.4 Calcium 8.7 Total Bilirubin 0.80 0.80 AST 135 H ALT 273 H Alkaline Phosphatase 139 H Total Protein 6.1 L Albumin 3.4 Globulin 2.7 Albumin/Globulin Ratio 1.2 DS: Provider Date of admission: 02/26/17 16:03 Primary care physician: . No PCP Attending physician on admission: Lexii Kee MD Consults: 02/26/17 15:56 Consult to Physician [CONS] Routine Comment: Pancreatitis with cholecystitis and cholelithiasis Consulting Provider: Bunny Hill Consulting Provider Notified: Yes When should Consulting Provider be notified: Now Person Notified: aware Consult Notification Comment: spoke with Dr Hill at 1656. 02/26/17 16:54 Consult to Physician [CONS] Routine Comment: gallstone pancreatitis Consulting Provider: Chip Chakraborty When should Consulting Provider be notified: Now Person Notified: emy Date Notified: 02/26/17 Time Notified: 16:58 Discharging clinician: Alexsander Alas NP <Lexii Kee - Last Filed: 03/01/17 11:39> Hospital Course - Time spent with patient Time with patient DS: Less than 30 minutes (25 min) Diagnosis - Discharge Diagnosis (1) Cholecystitis with cholelithiasis Status: Acute (2) Acute gallstone pancreatitis Status: Acute (3) Elevated liver enzymes Status: Acute Discharge Plan - Discharge Data Condition at Discharge: Stable Discharge Diet: heart healthy Activity: resume usual activities as tolerated Hygiene: no restrictions Weight Bearing at Discharge: full weight bearing Driving: no restrictions Exam - Constitutional General appearance: normal weight, no acute distress - Respiratory Respiratory exam: Present: clear to auscultation bilaterally. Absent: rales, wheezes - Cardiovascular Cardiovascular exam: Present: regular rate and rhythm. Absent: systolic murmur - GI/Abdominal GI/Abdominal exam: Present: normal bowel sounds, soft. Absent: tenderness
--- NOTE | 2017-03-01 12:38 | Event Note ---
General Surgery Progress Note Chief complaint This patient is a 66-year-old woman admitted with gallstone pancreatitis treated with laparoscopic cholecystectomy with normal intraoperative cholangiogram by Dr. Hill on 02/28/2017 Interval history Patient is doing well. She is tolerating her diet well. Pain is well controlled. Physical exam Patient is afebrile with normal vital signs Her abdominal exam is benign and the incisions are clean Labs Reviewed Imaging Cholangiogram reviewed Assessment and plan Patient will be discharged home today Prescription for [place] was placed in the chart Patient was instructed to call Dr. Moreno's office on Friday to schedule follow-up appointment she was given wound care instructions and lifting restrictions.
--- NOTE | 2017-03-03 12:19 | Pathology Report from [facility] ---
[facility] [id number] PATIENT NAME : Felipa Griffin ORDERING DR : Bunny Hill MD CLINICAL HX: Acute gallstone pancreatitis POST-OP DX: Same SPECIMEN INFO: Gallbladder GROSS DESCRIPTION: The specimen is received in formalin labeled with the patients name and consists of an intact pear-shaped gallbladder measuring 9.7 x 3.2 cm. The serosa is yellow-leija and fatty and focally hyperemic. The wall averages 0.2 cm in thickness. The mucosa is velvety, yellow-gold and slightly granular. The lumen contains viscous yellow bile. Within the bile are multiple lobulated yellow-green stones collectively measuring 2.8 x 4.5 cm with the largest stone measuring up to 1.3 cm. There is a 0.8 cm stone located within the cystic duct. Journeyman Pressman sections submitted in one cassette. DIAGNOSIS FOR FELIPA GRIFFIN: GALLBLADDER: Chronic cholecystitis. Cholelithiasis. No evidence of malignancy. COLLECTED DATE: 02/28/2017 [facility] REPORT DATE: 03/03/2017 ELECTRONICALLY SIGNED BY: Pankaj Abarca III, M.D. 03/03/2017 - 9:04:26 KATHIE
== END 2017-03-01 12:48 | disposition home or self-care (01) | DRG 418 ==
LOC: N.ED 13:08 → N.EDINP 16:03 → N.5E 16:46
PROVIDERS: ADMIT Internal Medicine; ATTEND Internal Medicine
PROC: LAPCHOL (2017-02-28 09:52)